=== PATIENT | female | born 1970 | race Two or more races ===

== ENCOUNTER 2017-09-05 20:20 | Emergency (ER) | payer BC ==
[2017-09-05 20:34] VITALS: BP 116/88
[2017-09-05] MEDS ORDERED: diphenhydrAMINE 50 MG/ML SDV IVPUSH ONE (20:53)
[2017-09-05] MEDS ORDERED: Ketorolac 30 MG/ML SDV IVPUSH ONE (20:53)
[2017-09-05] MEDS ORDERED: Haloperidol Lactate 5 MG/ML SDV IVPUSH ONE (20:53)
[2017-09-05] MEDS ORDERED: Sodium Chloride 0.9% 1,000 ML IV SCH (21:00)
--- NOTE | 2017-09-05 21:00 | EDM.PDOC ---
ED HPI GENERAL MEDICAL PROBLEM - General Chief Complaint: Headache Stated Complaint: HEADACHE Time Seen by Provider: 09/05/17 20:32 Source of Information: Reports: Patient, Family History Limitations: Reports: No Limitations - History of Present Illness INITIAL COMMENTS - FREE TEXT/NARRATIVE: This is a 47-year-old female. She comes today because about 1 AM this morning she awoke with a severe headache. The story goes that yesterday she got pinned in by the snow plow's and so she went out to do down her driveway. She apparently shoveled quite a bit until her got home and, took over. Then she woke up this morning with this severe headache. She describes it as a tightness pounding type headache seems to come from her shoulders and neck and going to her head and sometimes to the front of her head. She has had no nausea and vomiting. She denies any vertigo. She's had no photophobia or phonophobia. She states that moving her head especially flexion or extension or rotation causes her headache to get worse. She denies any other acute symptoms. 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 (See Below) Other OB/BYN History: chronic pain, dryness and swelling around the nipples Neurological History: Reports: Migraines - Infectious Disease History Infectious Disease History: Reports: Chicken Pox - Past Surgical History GI Surgical History: Reports: Appendectomy Female Surgical History: Reports: Hysterectomy Other Female Surgeries/Procedures: partial hysterectomy Social & Family History - Family History Family Medical History: Noncontributory - Tobacco Use Smoking Status *Q: Former Smoker Years of Tobacco use: 20 Packs/Tins Daily: 1 Used Tobacco, but Quit: Yes Month Tobacco Last Used: 1 month Second Hand Smoke Exposure: No - Caffeine Use Caffeine Use: Reports: Coffee, Soda - Recreational Drug Use Recreational Drug Use: No ED ROS GENERAL - Review of Systems Review Of Systems: See Below Constitutional: Denies: Fever, Chills HEENT: Denies: Sinus Problem, Throat Pain Respiratory: Reports: No Symptoms Cardiovascular: Reports: No Symptoms Endocrine: Reports: No Symptoms GI/Abdominal: Reports: No Symptoms : Reports: No Symptoms Musculoskeletal: Reports: Other (Patient has neck soreness and pain) Skin: Reports: No Symptoms Neurological: Reports: Headache Psychiatric: Reports: No Symptoms Hematologic/Lymphatic: Reports: No Symptoms - Physical Exam Exam: See Below Exam Limited By: No Limitations General Appearance: Alert, WD/WN, Mild Distress Eye Exam: Bilateral Eye: Normal Inspection Ears: Normal External Exam, Normal Canal, Normal TMs Nose: Normal Inspection Throat/Mouth: Normal Inspection, Normal Lips, Normal Oropharynx, Normal Voice, No Airway Compromise Head Exam: Normocephalic Neck: Other (The trapezius muscles are extremely tender and tight and the paraspinal cervical muscles appear to be very tight and having mild spasms, movement of her neck or flexion of her neck increases her headache, palpation around the scalp also seems to increase the throbbing type headache, she does not have nuchal rigidity however.) Respiratory/Chest: No Respiratory Distress, Lungs Clear, Normal Breath Sounds Cardiovascular: Regular Rate, Rhythm, No Murmur GI/Abdominal: Soft Neuro Exam (Abbreviated): Alert, Oriented Back Exam: Full Range of Motion Extremities: Normal Inspection, Normal Range of Motion Psychiatric: Normal Affect, Normal Mood Skin Exam: Warm, Dry Course - Vital Signs Last Recorded V/S: Last Vital Signs Temp 98.4 F 09/05/17 20:32 Pulse 94 09/05/17 20:32 Resp 20 09/05/17 20:32 BP 116/88 09/05/17 20:32 Pulse Ox 100 09/05/17 20:32 - Orders/Labs/Meds Orders: Active Orders 24 hr Category Date Time Status Sodium Chloride 0.9% [Normal Saline] 1,000 ml Med 09/05/17 21:00 Active IV ASDIRECTED Medication Orders Sodium Chloride (Normal Saline) 1,000 mls @ 1,000 mls/hr IV ASDIRECTED YONIS Last Admin: 09/05/17 21:15 Dose: 1,000 mls/hr Meds: Medications Generic Name Dose Route Start Last Admin Trade Name Althea PRN Reason Stop Dose Admin Sodium Chloride 1,000 mls @ 1,000 mls/hr 09/05/17 21:00 09/05/17 21:15 Normal Saline IV 1,000 mls/hr ASDIRECTED YONIS Administration Discontinued Medications Generic Name Dose Route Start Last Admin Trade Name Althea PRN Reason Stop Dose Admin Diphenhydramine HCl 50 mg 09/05/17 20:53 09/05/17 21:13 Benadryl IVPUSH 09/05/17 20:54 50 mg ONETIME ONE Administration Haloperidol Lactate 5 mg 09/05/17 20:53 09/05/17 21:11 Haldol IVPUSH 09/05/17 20:54 5 mg ONETIME ONE Administration Ketorolac Tromethamine 30 mg 09/05/17 20:53 09/05/17 21:14 Toradol IVPUSH 09/05/17 20:54 30 mg ONETIME ONE Administration - Re-Assessments/Exams Free Text/Narrative Re-Assessment/Exam: 09/05/17 22:18 The patient is sleeping soundly. She says her headache is resolved and she feels real good. I cautioned her that the headaches related to her shoveling snow and the muscle spasms in her trapezius and her neck. I'll provide a muscle relaxer for her and cautioned her to continue with icing and no strenuous activity over the next 2-3 days. She needs to follow-up with her family doctor for recheck this week. Departure - Departure Time of Disposition: 22:19 Disposition: Home, Self-Care 01 Condition: Good Clinical Impression: Tension-type headache, Muscle spasms of neck Cervical strain, acute Qualifiers: Encounter type: initial encounter Qualified Code(s): S16.1XXA - Strain of muscle, fascia and tendon at neck level, initial encounter - Discharge Information Prescriptions: Orphenadrine [Norflex] 100 mg PO BID PRN #12 tab.er PRN Reason: Spasms Referrals: PCP,None [Primary Care Provider] - Forms: ED Department Discharge Additional Instructions: Sleep as much as possible, take the medicine for spasms as needed, ice the neck down as much as possible and see if you can get a massage of your neck and upper back for the spasms, follow-up with your family doctor this week for recheck, no strenuous activity especially lifting and actually no shoveling snow , return to the ER if needed - My Orders Last 24 Hours: My Active Orders 09/05/17 21:00 Sodium Chloride 0.9% [Normal Saline] 1,000 ml IV ASDIRECTED - Assessment/Plan Last 24 Hours: My Active Orders 09/05/17 21:00 Sodium Chloride 0.9% [Normal Saline] 1,000 ml IV ASDIRECTED
== END 2017-09-05 22:28 | disposition home or self-care (01) ==
LOC: JD.ED 20:20
DX: S16.1XXA Strain of muscle, fascia and tendon at neck level, initial encounter (principal); G44.209 Tension-type headache, unspecified, not intractable; M62.838 Other muscle spasm; Z87.891 Personal history of nicotine dependence; Z79.899 Other long term (current) drug therapy; Z88.5 Allergy status to narcotic agent; Z88.6 Allergy status to analgesic agent; X58.XXXA Exposure to other specified factors, initial encounter; Y93.H1 Activity, digging, shoveling and raking
CPT/HCPCS: 96361; 96374; 96375; 99284; J1200; J1630; J1885; J7040

== ENCOUNTER 2018-09-12 20:08 | Emergency (ER) | payer SELFPAY ==
[2018-09-12 20:25] VITALS: BP 113/80
--- NOTE | 2018-09-12 20:51 | EDM.PDOC ---
ED HPI GENERAL MEDICAL PROBLEM - General Chief Complaint: Lower Extremity Injury/Pain Stated Complaint: LEFT KNEE PAINFUL & SWOLLEN Time Seen by Provider: 09/12/18 20:22 Source of Information: Reports: Patient, Family History Limitations: Reports: No Limitations - History of Present Illness INITIAL COMMENTS - FREE TEXT/NARRATIVE: 48 yo F comes in today for left leg pain after a fall 11 days ago on 08/31/18. She was getting into her car and slipped on ice with her foot caught in the door , which twisted her leg. She was then seen at [facility] where she had an Xray and they told her she had a "fracture and a chip". She was given a prescription of Hydrocodone for pain and told to cone picker a leg brace from [employer]. Pt and state they were never told to follow up with orthopedic. She does not have crutches and has been weight bearing on the leg with some pain. She still has swelling and pain to the tibial plateau area. Rates pain 2/10 at rest and slightly worse with walking. No other complaints at this time. Left Leg Pain Score (Numeric/FACES): 2 - Related Data Allergies Allergy/AdvReac Type Severity Reaction Status Date / Time oxycodone [From Percocet] Allergy Other Verified 09/12/18 20:25 tramadol AdvReac Mild Vomiting Verified 09/08/17 12:04 acetaminophen [From Percocet] AdvReac Stomach Verified 09/08/17 12:04 Ache Home Meds: Home Meds Ibuprofen [IJD: Ibuprofen] 800 mg PO TID PRN #30 tab 04/24/16 [Rx] Orphenadrine [Norflex] 100 mg PO BID PRN #12 tab.er 09/05/17 [Rx] Venlafaxine [Effexor] 75 mg PO DAILY 09/05/17 [History] Past Medical History HEENT History: Reports: Other (See Below) Other HEENT History: dental surgery 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: chronic pain, dryness and swelling around the nipples Neurological History: Reports: Migraines - Infectious Disease History Infectious Disease History: Reports: Chicken Pox - Past Surgical History GI Surgical History: Reports: Appendectomy Female Surgical History: Reports: Hysterectomy Other Female Surgeries/Procedures: partial hysterectomy Social & Family History - Family History Family Medical History: Noncontributory - Tobacco Use Smoking Status *Q: Current Every Day Smoker Years of Tobacco use: 25 Packs/Tins Daily: 0.2 - Caffeine Use Caffeine Use: Reports: Coffee - Recreational Drug Use Recreational Drug Use: No Review of Systems - Review of Systems Review Of Systems: ROS reveals no pertinent complaints other than HPI. ED EXAM, GENERAL - Physical Exam Exam: See Below Exam Limited By: No Limitations General Appearance: Alert, WD/WN, No Apparent Distress Eye Exam: Bilateral Eye: EOMI, Normal Inspection, PERRL Ears: Normal External Exam, Hearing Grossly Normal Nose: Normal Inspection, Normal Mucosa, No Blood Throat/Mouth: Normal Inspection, Normal Lips, Normal Teeth, Normal Gums, Normal Oropharynx, Normal Voice, No Airway Compromise Head: Atraumatic, Normocephalic Neck: Normal Inspection, Supple, Non-Tender, Full Range of Motion Respiratory/Chest: No Respiratory Distress, Lungs Clear, Normal Breath Sounds, No Accessory Muscle Use, Chest Non-Tender Cardiovascular: Normal Peripheral Pulses, Regular Rate, Rhythm, No Edema, No Gallop, No JVD, No Murmur, No Rub Peripheral Pulses: 3+: Posterior Tibial (L), Dorsalis Pedis (L), 4+: Posterior Tibial (R), Dorsalis Pedis (R) GI/Abdominal: Normal Bowel Sounds, Soft, Non-Tender, No Organomegaly, No Distention, No Abnormal Bruit, No Mass Back Exam: Normal Inspection, Full Range of Motion, NT Extremities: No Pedal Edema, Normal Capillary Refill, Joint Swelling (L knee), Leg Pain (s/p injury from fall LLE), Limited Range of Motion (s/p injury from fall LLE) Neurological: Alert, Oriented, CN II-XII Intact, Normal Cognition, Abnormal Gait Psychiatric: Normal Affect, Normal Mood Skin Exam: Warm (s/p injury from fall LLE), Dry, Intact, Normal Color, No Rash Course - Vital Signs Last Recorded V/S: Last Vital Signs Temp 97.1 F 09/12/18 20:21 Pulse 91 09/12/18 20:21 Resp 18 09/12/18 20:21 BP 113/80 09/12/18 20:21 Pulse Ox 97 09/12/18 20:21 - Orders/Labs/Meds Orders: Active Orders 24 hr Category Date Time Status Tibia Fibula Lt [CR] Stat Exams 09/12/18 20:41 Ordered - Re-Assessments/Exams Free Text/Narrative Re-Assessment/Exam: 09/12/18 20:56 L Tib/Fib reviewed by myself and Dr. Tamez- there seems to be no fractures present at this time. Likely soft tissue/meniscal injury that will need orthopedic follow up with MRI. Departure - Departure Time of Disposition: 20:59 Disposition: Home, Self-Care 01 Condition: Good Clinical Impression: Derangement of knee - Discharge Information *PRESCRIPTION DRUG MONITORING PROGRAM REVIEWED*: Not Applicable *COPY OF PRESCRIPTION DRUG MONITORING REPORT IN PATIENT TORI: Not Applicable Instructions: How to Use a Knee Immobilizer, [id number], Crutch Use, Adult, [id number] Referrals: PCP,None [Primary Care Provider] - Additional Instructions: You were seen in the ED today for evaluation of a previous injury to your L leg that has continued to have pain and swelling. A repeat Xray was done and there were no fractures seen. With your history of a twisting injury and continued swelling, it is likely you have a soft tissue injury within your knee. You will be given a new brace and some crutches today. Recommend non-weight bearing on the L leg, rest, ice, elevation. You can use over the counter medication for pain relief, such as ibuprofen, or continue the previous prescription you were given. Recommend follow up with orthopedic surgeon, Dr. Liang. You can make an appointment with Dr. Liang . You will likely need an MRI at that time. Please return to ED if new or worsening symptoms. - My Orders Last 24 Hours: My Active Orders 09/12/18 20:41 Tibia Fibula Lt [CR] Stat - Assessment/Plan Last 24 Hours: My Active Orders 09/12/18 20:41 Tibia Fibula Lt [CR] Stat
--- NOTE | 2018-09-13 07:08 | CR ---
Left tibia and fibula: Two views of the left tibia and fibula were obtained. Comparison: No prior study. Slight concavity of the medial tibial plateau is seen. Uncertain if this is positional or due to mild impaction fracture. No additional bony abnormality is seen. Impression: 1. Equivocal finding within the medial tibial plateau as noted above. 2. Left tibia and fibula study are otherwise unremarkable. Diagnostic code #3
== END 2018-09-12 21:45 | disposition home or self-care (01) ==
LOC: JD.ED 20:08
DX: M23.92 Unspecified internal derangement of left knee (principal); F17.210 Nicotine dependence, cigarettes, uncomplicated; Z88.5 Allergy status to narcotic agent; Z88.8 Allergy status to other drugs, medicaments and biological substances; Z79.899 Other long term (current) drug therapy
CPT/HCPCS: 73590-26-LT; 73590-LT; 99282; 99283-25

== ENCOUNTER 2020-02-24 20:37 | Emergency (ER) | payer SELFPAY ==
[2020-02-24 21:00] VITALS: BP 137/90; PULSE 92
--- NOTE | 2020-02-24 21:39 | EDM.PDOC ---
ED HPI GENERAL MEDICAL PROBLEM - General Chief Complaint: Lower Extremity Injury/Pain Stated Complaint: ANKLE INJURY Time Seen by Provider: 02/24/20 21:38 Source of Information: Reports: Patient History Limitations: Reports: No Limitations - History of Present Illness INITIAL COMMENTS - FREE TEXT/NARRATIVE: 49-year-old female attends the ED for a evaluation of injury to her distal fibula that occurred yesterday when she accidentally kicked a motor which was on the ground in the garage that her was working on. She indicates that she clipped it significantly with the lateral aspect of her ankle over the distal fibula and the pain just about made her pass out. Unfortunately 20 minutes later when she was opening a gate a rock came up and hit her in exactly the same place. She presents on crutches with painful weightbearing with swelling distal fibula and dorsal lateral foot. Denies falling or injuring any other areas. She has the crutches from a previous injury to her left knee which improved on its own. Is been taking Motrin for pain without much relief. Onset: Sudden Onset Date: 02/23/20 Onset Time: 21:00 Duration: Hour(s):, Getting Worse Location: Reports: Upper Extremity, Right (Injuries to the distal fibula of her right ankle.) Quality: Reports: Ache, Burning, Throbbing, Other (Pain radiates up to the knee and along the lateral aspect of her foot suggesting some degree of neurogenic component to her pain.) Severity: Moderate (The pain is 7-8 out of 10.) Improves with: Reports: Rest Worsens with: Reports: Other (Weightbearing and touching the area makes it) Context: Reports: Trauma (Trauma when she accidentally kicked a motor on the garage floor of her home.). Denies: Activity ( more painful.), Exercise, Lifting, Sick Contact Associated Symptoms: Reports: No Other Symptoms Treatments ENGINE CLEANER: Reports: Acetaminophen, NSAIDS (Motrin 400 mg every 6 hours.) Right Ankle Pain Score (Numeric/FACES): 3 - Related Data Allergies Allergy/AdvReac Type Severity Reaction Status Date / Time oxycodone [From Percocet] Allergy Other Verified 09/12/18 20:25 tramadol AdvReac Mild Vomiting Verified 09/08/17 12:04 acetaminophen [From Percocet] AdvReac Stomach Verified 09/08/17 12:04 Ache Home Meds: Home Meds Ibuprofen [IJD: Ibuprofen] 800 mg PO TID PRN #30 tab 04/24/16 [Rx] Orphenadrine [Norflex] 100 mg PO BID PRN #12 tab.er 09/05/17 [Rx] Venlafaxine [Effexor] 75 mg PO DAILY 09/05/17 [History] Hydrocodone/Acetaminophen [[place] 5-325 Tablet] 1 each PO Q4H PRN #16 tablet 02/24/20 [Rx] Past Medical History HEENT History: Reports: Other (See Below) Other HEENT History: dental surgery 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: chronic pain, dryness and swelling around the nipples Musculoskeletal History: Reports: Other (See Below) (Previous ligamentous injury to her left knee.) Neurological History: Reports: Migraines - Infectious Disease History Infectious Disease History: Reports: Chicken Pox - Past Surgical History GI Surgical History: Reports: Appendectomy Female Surgical History: Reports: Hysterectomy Other Female Surgeries/Procedures: partial hysterectomy Social & Family History - Family History Family Medical History: Noncontributory - Tobacco Use Smoking Status *Q: Former Smoker Used Tobacco, but Quit: Yes Month/Year Tobacco Last Used: 2019 - Caffeine Use Caffeine Use: Reports: Coffee - Living Situation & Occupation Living situation: Reports: Occupation: Unemployed Review of Systems - Review of Systems Review Of Systems: See Below Constitutional: Reports: No Symptoms Eyes: Reports: No Symptoms Ears: Reports: No Symptoms Nose: Reports: No Symptoms Mouth/Throat: Reports: No Symptoms Respiratory: Reports: No Symptoms Cardiovascular: Reports: No Symptoms GI/Abdominal: Reports: No Symptoms Genitourinary: Reports: No Symptoms Musculoskeletal: Reports: Back Pain, Other (Right lateral ankle pain at pres ent.) Skin: Reports: No Symptoms Neurological: Reports: No Symptoms Psychiatric: Reports: No Symptoms ED EXAM, GENERAL - Physical Exam Exam: See Below Exam Limited By: No Limitations General Appearance: Alert, WD/WN, Anxious, Mild Distress, Other (Temperature is 36.6. Heart rate is 92 in sinus respiratory 16 with O2 sats of 97% on room air. BP is 137/90.) Eye Exam: Bilateral Eye: Normal Inspection, PERRL Extremities: Other (Examination was limited to her right lower extremity. She does have ecchymoses and swelling over the distal 3 cm of her fibula. There is also significant bruising and swelling anterior to the distal fibula and ecchymoses in the dorsal lateral foot suggestive of an ankle sprain contusion. There is no abnormality or pain on the medial aspect of the ankle. Pain will shoot up towards her right lateral knee in the distribution of the needle nerve at times.) Neurological: Alert, Oriented, CN II-XII Intact, Normal Cognition. No: Normal Gait Psychiatric: Normal Affect (He arrives on crutches.), Normal Mood Skin Exam: Warm, Dry, Intact, Ecchymosis (Anterior to the right distal fibula and lateral foot.) Course - Vital Signs Last Recorded V/S: Last Vital Signs Temp 36.6 C 02/24/20 20:57 Pulse 92 02/24/20 20:57 Resp 16 02/24/20 20:57 BP 137/90 02/24/20 20:57 Pulse Ox 97 02/24/20 20:57 - Orders/Labs/Meds Orders: Active Orders 24 hr Category Date Time Status Ankle Min 3V Rt [CR] Stat Exams 02/24/20 21:38 Taken Meds: Medications Discontinued Medications Generic Name Dose Route Start Last Admin Trade Name Freq PRN Reason Stop Dose Admin Hydrocodone Bitart/Acetaminophen 1 tab 02/24/20 22:12 02/24/20 22:23 [place] 325-5 Mg PO 02/24/20 22:13 1 tab ONETIME ONE Administration - Radiology Interpretation Free Text/Narrative:: 49-year-old female presents to the ED for evaluation of injury to her distal fib elieser and ankle yesterday evening. She reports that she accidentally kicked a motor that is on the garage floor that her is working on injuring the distal fibula and lateral ankle and foot. She states initially the pain was about she does well past. When she recovered from this unfortunately she is opening a gate and was struck in the lateral aspect of the foot by a rock while closing the gait in the same area. She states the pain is bad enough that she cannot fully weight-bear and is therefore on crutches. She has the crutches due to previous injury to her left knee with ligamentous injury from which she recovered from. Exam reveals swelling erythema and ecchymoses dorsal lateral foot particular over the distal 3 cm of the fibula. Medial ankle is normal. Plan x-ray of the right ankle x3 view to be obtained - Re-Assessments/Exams Free Text/Narrative Re-Assessment/Exam: 02/24/20 22:30: 3 views of the right ankle were obtained. There is no fracture of the distal fibula and talus and distal tibia are normal as well. Patient was therefore placed in an Crow wrap to support her ankle and foot. She will ice the area 1/2-hour out of every 4 hours for another 24 hours. Elevate the foot as much as possible. She will be nonweightbearing crutch walking for the next 3 to 5 days until she can weight-bear without pain. She will continue Motrin 600 mg every 6 hours to reduce pain and inflammation. Percocet tabs 5/325 mg through the [employer] machine x12 were provided for pain relief which appears to be out of proportion to clinical findings although she may well have suffered a significant bone bruise the pain rating into her right knee suggests neuropathic pain or referred pain from blunt trauma to the periosteum. We will follow-up with her primary care physician next week if needed. She has an appointment already scheduled for Friday. Departure - Departure Time of Disposition: 22:13 Disposition: Home, Self-Care 01 Condition: Fair Clinical Impression: Bone bruise Contusion, ankle Qualifiers: Encounter type: initial encounter Laterality: right Qualified Code(s): S90.01XA - Contusion of right ankle, initial encounter - Discharge Information *PRESCRIPTION DRUG MONITORING PROGRAM REVIEWED*: Not Applicable *COPY OF PRESCRIPTION DRUG MONITORING REPORT IN PATIENT TORI: Not Applicable Prescriptions: Hydrocodone/Acetaminophen [[place] 5-325 Tablet] 1 each PO Q4H PRN #16 tablet PRN Reason: pain relief Instructions: Contusion, [id number] Referrals: PCP,None [Primary Care Provider] - Forms: ED Department Discharge Additional Instructions: Evaluation in the ED tonight in regards to blunt trauma to the Rt lateral ankle yesterday x 2. Exam reveals swelling and brusiing lateral ankle with pain well localized to the lower fibula ( ankle bone) .X-rays of the ankle and foot do not reveal any broken bones. You have suffered a bone bruise which is referring pain up the leg to the knee at times. Treatment is CROW wrap on during the day and off at night . Ice pack to the area for 1/2 hrs every 4hrs for one more day then may use heat on the area. Suggest Motrin 600mg every6 hrs for pain . May also take [place] 5/325mg tab let every 4-6 hrs for the next few days for pain not controlled by Motrin alone. Non weight bearing crutch walking until able to weight bare with little to no pain in the lateral ankle. like this will be 5 days or so. Follow up with personal physcian if any other problems develop. Sepsis Event Note (ED) - Evaluation Sepsis Screening Result: No Definite Risk - Focused Exam Vital Signs: Vital Signs Temp Pulse Resp BP Pulse Ox 02/24/20 20:57 36.6 C 92 16 137/90 97 - My Orders Last 24 Hours: My Active Orders 02/24/20 21:38 Ankle Min 3V Rt [CR] Stat - Assessment/Plan Last 24 Hours: My Active Orders 02/24/20 21:38 Ankle Min 3V Rt [CR] Stat
[2020-02-24] MEDS ORDERED: Acetaminophen/HYDROcodone 325-5 MG Tab PO ONE (22:12)
--- NOTE | 2020-02-25 06:55 | CR ---
Right ankle: 4 views of the right ankle were obtained. Comparison: No previous ankle study. Ankle mortise is symmetric. No fracture, dislocation or other bony abnormality is seen. Impression: 1. No abnormality is appreciated on three-view right ankle exam. Diagnostic code #1 This report was dictated in MDT
== END 2020-02-24 22:37 | disposition home or self-care (01) ==
LOC: JD.ED 20:37
DX: S90.01XA Contusion of right ankle, initial encounter (principal); S80.11XA Contusion of right lower leg, initial encounter; Z88.5 Allergy status to narcotic agent; Z88.6 Allergy status to analgesic agent; Z90.89 Acquired absence of other organs; Z90.710 Acquired absence of both cervix and uterus; Z87.891 Personal history of nicotine dependence; W22.8XXA Striking against or struck by other objects, initial encounter
CPT/HCPCS: 73610; 99283; A9270

== ENCOUNTER 2020-05-16 23:35 | Emergency (ER) | payer MEDICAID ==
[2020-05-17] VITALS: BP 140/82; PULSE 94
--- NOTE | 2020-05-17 00:14 | EDM.PDOC ---
ED HPI GENERAL MEDICAL PROBLEM - General Chief Complaint: Flank Pain Stated Complaint: RIGHT SIDE FLANK PAIN Time Seen by Provider: 05/17/20 00:14 - History of Present Illness INITIAL COMMENTS - FREE TEXT/NARRATIVE: 49-year-old female presents the emergency room with flank pain. This was on and off mostly yesterday and today it has been progressively getting worse. The patient has a history of kidney stones she states calcium oxalate. The patient has not had any recent follow-up with a primary care provider or urologist. She has been seen here several times in the past but not for kidney stone since 2013. Patient denies any vomiting minimal nausea no fevers or chills. She has no burning or frequency with urination. Is have some back pain no loss of bowel or bladder control she believes the back pain is related to a suspected kidney stone. She denies any possibility of she has had a partial hysterectomy in the past. Patient denies any other problems. The patient's med list is not up-to-date she takes one medication escitaiopram, generic for Lexapro. Think she is taking this for hot flashes. Right Flank Pain Score (Numeric/FACES): 3 - Related Data Allergies Allergy/AdvReac Type Severity Reaction Status Date / Time oxycodone [From Percocet] Allergy Other Verified 05/16/20 23:57 tramadol AdvReac Mild Vomiting Verified 05/16/20 23:57 acetaminophen [From Percocet] AdvReac Stomach Verified 05/16/20 23:57 Ache Home Meds: Home Meds Ibuprofen [IJD: Ibuprofen] 800 mg PO TID PRN #30 tab 04/24/16 [Rx] Orphenadrine [Norflex] 100 mg PO BID PRN #12 tab.er 09/05/17 [Rx] Venlafaxine [Effexor] 75 mg PO DAILY 09/05/17 [History] Hydrocodone/Acetaminophen [Avon 5-325 Tablet] 1 each PO Q4H PRN #16 tablet 02/24/20 [Rx] Past Medical History HEENT History: Reports: Other (See Below) Other HEENT History: dental surgery 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: chronic pain, dryness and swelling around the nipples Musculoskeletal History: Reports: Other (See Below) Other Musculoskeletal History: tendon repair to R) leg Neurological History: Reports: Migraines - Infectious Disease History Infectious Disease History: Reports: Chicken Pox - Past Surgical History GI Surgical History: Reports: Appendectomy Female Surgical History: Reports: Hysterectomy Other Female Surgeries/Procedures: partial hysterectomy Social & Family History - Family History Family Medical History: No Pertinent Family History - Tobacco Use Tobacco Use Status *Q: Current Every Day Tobacco User Years of Tobacco use: 20 Packs/Tins Daily: 0.1 - Caffeine Use Caffeine Use: Reports: Coffee - Recreational Drug Use Recreational Drug Use: No - Living Situation & Occupation Living situation: Reports: Occupation: Unemployed ED ROS GENERAL - Review of Systems Review Of Systems: See Below Constitutional: Reports: No Symptoms HEENT: Reports: No Symptoms Respiratory: Reports: No Symptoms Cardiovascular: Reports: No Symptoms GI/Abdominal: Reports: No Symptoms : Reports: Flank Pain. Denies: Discharge, Dysuria, Frequency, Urgency Musculoskeletal: Reports: No Symptoms Skin: Reports: No Symptoms ED EXAM, GI/ABD - Physical Exam Exam: See Below Exam Limited By: No Limitations General Appearance: Alert, No Apparent Distress Head: Atraumatic, Normocephalic Neck: Normal Inspection, Supple, Non-Tender, Full Range of Motion Respiratory/Chest: No Respiratory Distress, Lungs Clear, Normal Breath Sounds Cardiovascular: Regular Rate, Rhythm, No Edema, No Murmur GI/Abdominal Exam: Normal Bowel Sounds, Soft, Other (Has some right-sided discomfort however this is not aggravated with palpation. No rigidity rebound or guarding noted) Back Exam: Normal Inspection, Muscle Spasm (He does have some muscle spasm on the right mid to lower thoracic region. And this does cause some pain but the patient is still somewhat convinced she has a kidney stone). No: CVA Tenderness (L), CVA Tenderness (R), Vertebral Tenderness Extremities: Normal Inspection, No Pedal Edema Neurological: Alert, Oriented, Normal Cognition Course - Vital Signs Last Recorded V/S: Last Vital Signs Temp 36.8 C 05/16/20 23:57 Pulse 94 05/16/20 23:57 Resp 17 05/16/20 23:57 BP 140/82 05/16/20 23:57 Pulse Ox 94 L 05/16/20 23:57 - Orders/Labs/Meds Orders: Active Orders 24 hr Category Date Time Status Abdomen Pelvis wo Cont [CT] Stat Exams 05/17/20 00:38 Taken Abdomen wo Cont [CT] Stat Exams 05/17/20 00:21 Ordered Labs: Laboratory Tests 05/17/20 05/17/20 05/17/20 Range/Units 00:40 01:08 01:08 WBC 10.98 H (3.98-10.04) K/mm3 RBC 3.96 L (3.98-5.22) M/mm3 Hgb 12.2 D (11.2-15.7) gm/dl Hct 37.5 (34.1-44.9) % MCV 94.7 (79.4-94.8) fl MCH 30.8 (25.6-32.2) pg MCHC 32.5 (32.2-35.5) g/dl RDW Std Deviation 47.8 H (36.4-46.3) fL Plt Count 358 (182-369) K/mm3 MPV 9.2 L (9.4-12.3) fl Neut % (Auto) 53.1 (34.0-71.1) % Lymph % (Auto) 38.0 (19.3-51.7) % [place] % (Auto) 6.3 (4.7-12.5) % Eos % (Auto) 1.9 (0.7-5.8) Baso % (Auto) 0.4 (0.1-1.2) % Neut # (Auto) 5.84 (1.56-6.13) K/mm3 Lymph # (Auto) 4.17 H (1.18-3.74) K/mm3 [place] # (Auto) 0.69 H (0.24-0.36) K/mm3 Eos # (Auto) 0.21 (0.04-0.36) K/mm3 Baso # (Auto) 0.04 (0.01-0.08) K/mm3 Manual Slide Review Abnormal smear Sodium 137 (136-145) mEq/L Potassium 3.9 (3.5-5.1) mEq/L Chloride 103 (98-107) mEq/L Carbon Dioxide 25 (21-32) mEq/L Anion Gap 12.9 (5-15) BUN 18 (7-18) mg/dL Creatinine 0.8 (0.55-1.02) mg/dL Est Cr Clr Drug Dosing 76.54 mL/min Estimated GFR (MDRD) > 60 (>60) mL/min BUN/Creatinine Ratio 22.5 H (14-18) Glucose 96 (74-106) mg/dL Calcium 9.8 (8.5-10.1) mg/dL Total Bilirubin 0.2 (0.2-1.0) mg/dL AST 20 (15-37) U/L ALT 47 (14-59) U/L Alkaline Phosphatase 80 (46-116) U/L Total Protein 7.5 (6.4-8.2) g/dl Albumin 3.6 (3.4-5.0) g/dl Globulin 3.9 gm/dL Albumin/Globulin Ratio 0.9 L (1-2) Urine Color Yellow (Yellow) Urine Appearance Clear (Clear) Urine pH 6.0 (5.0-8.0) Ur Specific [place] > or = 1.030 (1.005-1.030) Urine Protein Trace H (Negative) Urine Glucose (UA) Negative (Negative) Urine Ketones Trace H (Negative) Urine Occult Blood Negative (Negative) Urine Nitrite Negative (Negative) Urine Bilirubin Negative (Negative) Urine Urobilinogen 0.2 (0.2-1.0) Ur Leukocyte Esterase Negative (Negative) Urine RBC 0-5 (0-5) /hpf Urine WBC 0-5 (0-5) /hpf Ur Squamous Epith Cells 10-20 H (0-5) /hpf Urine Bacteria Moderate H (FEW) /hpf Urine Mucus Few (FEW) /hpf Meds: Medications Discontinued Medications Generic Name Dose Route Start Last Admin Trade Name Freq PRN Reason Stop Dose Admin Hydrocodone Bitart/Acetaminophen 1 tab 05/17/20 00:31 05/17/20 00:37 Avon 325-5 Mg PO 05/17/20 00:32 1 tab ONETIME ONE Administration Ondansetron HCl 4 mg 05/17/20 00:31 05/17/20 00:37 Zofran Odt PO 05/17/20 00:32 4 mg ONETIME ONE Administration - Re-Assessments/Exams Free Text/Narrative Re-Assessment/Exam: 05/17/20 01:59 Urinalysis is contaminated but leukocyte Estrace and nitrates negative not suggestive of UTI white count is minimally elevated remaining labs unremarkable. CT without contrast does not demonstrate a kidney stone evidence of hydronephrosis or any other suggestion of kidney stones whether obstructive or otherwise. I have reexamined her back and indeed this pain from the palpable muscle spasm does radiate down into the right lower abdomen. Departure - Departure Time of Disposition: 02:01 Disposition: Home, Self-Care 01 Clinical Impression: Acute right-sided back pain - Discharge Information Referrals: PCP,None [Primary Care Provider] - Forms: ED Department Discharge Additional Instructions: Return to the emergency room with any questions problems or worsening symptoms. Tylenol and/or Motrin as needed for discomfort. Take the Motrin only as directed and always take with food. Take the Tylenol only as directed do not exceed 4000 mg in a 24-hour period. Follow-up in the hospital clinic for recheck at the end of this week or first part of next week. [id number] Sepsis Event Note (ED) - Evaluation Sepsis Screening Result: No Definite Risk - Focused Exam Vital Signs: Vital Signs Temp Pulse Resp BP Pulse Ox 05/16/20 23:57 36.8 C 94 17 140/82 94 L - My Orders Last 24 Hours: My Active Orders 05/17/20 00:21 Abdomen wo Cont [CT] Stat 05/17/20 00:38 Abdomen Pelvis wo Cont [CT] Stat - Assessment/Plan Last 24 Hours: My Active Orders 05/17/20 00:21 Abdomen wo Cont [CT] Stat 05/17/20 00:38 Abdomen Pelvis wo Cont [CT] Stat
[2020-05-17] MEDS ORDERED: Acetaminophen/HYDROcodone 325-5 MG Tab PO ONE (00:31)
[2020-05-17] MEDS ORDERED: Ondansetron 4 MG Tab.DIS PO ONE (00:31)
--- NOTE | 2020-05-17 08:44 | CT ---
PROCEDURE INFORMATION: Exam: CT Abdomen And Pelvis Without Contrast Exam date and time: 05/17/2020 12:28 AM Age: 49 years old Clinical indication: Abdominal pain; Flank; Right TECHNIQUE: Imaging protocol: Computed tomography of the abdomen and pelvis without contrast. Radiation optimization: All CT scans at this facility use at least one of these dose optimization techniques: automated exposure control; mA and/or kV adjustment per patient size (includes targeted exams where dose is matched to clinical indication); or iterative reconstruction. COMPARISON: CT Abdomen Pelvis wo Cont 06/07/2015 2:49 PM FINDINGS: Liver: Normal. No mass. Gallbladder and bile ducts: Normal. No calcified stones. No ductal dilation. Pancreas: Normal. No ductal dilation. Spleen: Normal. No splenomegaly. Adrenal glands: Normal. No mass. Kidneys and ureters: Normal. No hydronephrosis. Stomach and bowel: Unremarkable. No obstruction. No mucosal thickening. Appendix: No evidence of appendicitis. Intraperitoneal space: Unremarkable. No free air. No significant fluid collection. Vasculature: Unremarkable. No abdominal aortic aneurysm. Lymph nodes: Unremarkable. No enlarged lymph nodes. Urinary bladder: Unremarkable as visualized. Reproductive: Unremarkable as visualized. Bones/joints: Unremarkable. No acute fracture. Soft tissues: Unremarkable. IMPRESSION: 1. No acute findings. 2. No evidence for renal or ureteral calculi. Thank you for allowing us to participate in the care of your patient. Dictated and Authenticated by: Jac Lizama MD 05/17/2020 2:10 AM Central Time ([place] & [place]) ALEXANDRO
== END 2020-05-17 02:15 | disposition home or self-care (01) ==
LOC: JD.ED 23:35
DX: M62.830 Muscle spasm of back (principal); F17.210 Nicotine dependence, cigarettes, uncomplicated; Z88.5 Allergy status to narcotic agent; Z88.6 Allergy status to analgesic agent; Z79.899 Other long term (current) drug therapy
CPT/HCPCS: 36415; 74176; 80053; 81001; 85025; 99284; A9270

== ENCOUNTER 2020-06-11 18:32 | Emergency (ER) | payer MEDICAID ==
[2020-06-11 18:50] VITALS: BP 119/84; PULSE 80
[2020-06-11] MEDS ORDERED: FLU VACC QS2020-21(6MOS UP)/PF 60 MCG/0.5 ML SYRINGE IM ONE (19:00)
[2020-06-11] MEDS ORDERED: Orphenadrine 100 MG Tab.ER PO STA (19:34)
--- NOTE | 2020-06-11 19:34 | EDM.PDOC ---
ED HPI GENERAL MEDICAL PROBLEM - General Chief Complaint: Gastrointestinal Problem Stated Complaint: BAD HEARTBURN,RIGHT SIDE PAIN BLOOD IN BOWEL MOV Time Seen by Provider: 06/11/20 19:03 Source of Information: Reports: Patient History Limitations: Reports: No Limitations - History of Present Illness INITIAL COMMENTS - FREE TEXT/NARRATIVE: Mrs. Santana is a pleasant 49-year-old woman who now presents the ED stating that she has had heartburn, felt as a burning sensation in her throat, along with increased eructation, for the past 2-1/2 weeks. She states that she has been sleeping with the head of her bed elevated, although she sleeps on her right side. She states that she then developed pain to her lower far right thorax, extending to her right back, this past 06/07/2020. The pain comes and goes. It is worse if she lies in the right decubitus position, although, as above, that is the position that she has been sleeping in. She then developed lower abdominal pain this past evening, 06/08/2020, or Friday morning, 06/09/2020. She thinks that it may be due to working on a small car that she and her purchased. She then noticed some bright red blood over normal- appearing stool when she wiped after a bowel movement Friday night, 06/09/2020. There was no pain associated with it. She states that she has had some nausea, but no vomiting. She states that she has had bad breath for the past 2 days, that she thinks may be related to a bad lower right tooth. The patient states that she has been taking a lot of [id number] TUMS and Pepto-Bismol to treat her heartburn symptoms. No recent fever or chills. No recent constipation or diarrhea. No recent urinary symptoms, such as dysuria or urinary frequency. Here in the ED, the patient is found to be hemodynamically stable, afebrile, saturating 99% on room air. Prior to 2 and half weeks ago, the patient denies having a recent fever, chills, sore throat, ear pain, nasal or sinus congestion, cough, dyspnea, chest pain, palpitations, nausea, vomiting, constipation, diarrhea, abdominal pain, urinary symptoms, recent weight gain or weight loss, recent bloody bowel movements or black bowel movements, recent joint aches, headaches, or rashes. The patient's PCP is Maritza Butterfield NP. She has not received an influenza vaccine this season, but agreed to receive one here tonight. 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: Endometriosis (laparoscopy-confirmed) - Infectious Disease History Infectious Disease History: Reports: Chicken Pox - Past Surgical History HEENT Surgical History: Reports: Oral Surgery (dental extractions) GI Surgical History: Reports: Appendectomy Female Surgical History: Reports: Hysterectomy (partial), Tubal Ligation, Other (See Below) (Exploratory laparoscopy for endometriosis x 1) Musculoskeletal Surgical History: Reports: Other (See Below) (Right Achilles tendon repair) Social & Family History - Family History Family Medical History: No Pertinent Family History - Tobacco Use Tobacco Use Status *Q: Current Every Day Tobacco User Years of Tobacco use: 23 Packs/Tins Daily: 0.1 Packs/Tins Daily Comment: Down from 1.5 ppd - Caffeine Use Caffeine Use: Reports: None - Alcohol Use Alcohol Use History: Yes Alcohol Use Frequency: Rarely - Recreational Drug Use Recreational Drug Use: No - Living Situation & Occupation Living situation: Reports: , with Spouse Occupation: Unemployed ED ROS GENERAL - Review of Systems Review Of Systems: Comprehensive ROS is negative, except as noted in HPI. ED EXAM, GENERAL - Physical Exam Exam: See Below Exam Limited By: No Limitations General Appearance: Alert, WD/WN, No Apparent Distress Eye Exam: Bilateral Eye: EOMI, Normal Inspection Ears: Normal External Exam, Hearing Grossly Normal Nose: Normal Inspection Throat/Mouth: Normal Inspection, Normal Lips, Normal Voice, No Airway Compromise Head: Atraumatic, Normocephalic Neck: Normal Inspection, Full Range of Motion Respiratory/Chest: No Respiratory Distress, Lungs Clear, Normal Breath Sounds, No Accessory Muscle Use Cardiovascular: Normal Peripheral Pulses, Regular Rate, Rhythm, No Edema, No Gallop, No JVD, No Murmur, No Rub Peripheral Pulses: 3+: Radial (L), Radial (R) GI/Abdominal: Normal Bowel Sounds, Soft, Non-Tender, No Organomegaly, No Distention, No Abnormal Bruit, No Mass Rectal (Female) Exam: Normal Exam, Normal Rectal Tone, Heme - Stool Back Exam: Normal Inspection, Full Range of Motion, Paraspinal Tenderness (extending to the lower far right ribs). No: CVA Tenderness (L), CVA Tenderness (R) Extremities: Normal Inspection, Normal Range of Motion, No Pedal Edema, Normal Capillary Refill Neurological: Alert, Oriented, Normal Cognition, No Motor/Sensory Deficits Psychiatric: Normal Affect Skin Exam: Warm, Dry, Intact, Normal Color, No Rash #1 Interpretation EKG Date: 06/11/20 Time: 19:38 Rhythm: NSR Rate (Beats/Min): 67 Harvey: Normal P-Wave: Present QRS: Normal ST-T: Normal QT: Normal Comparison: NA - No Prior EKG Course - Vital Signs Last Recorded V/S: Last Vital Signs Temp 36.6 C 06/11/20 18:47 Pulse 80 06/11/20 18:47 Resp 18 06/11/20 18:47 BP 119/84 06/11/20 18:47 Pulse Ox 99 06/11/20 18:47 - Orders/Labs/Meds Orders: Active Orders 24 hr Category Date Time Status EKG Documentation Completion [RC] STAT Care 06/11/20 19:27 Active Influenza Vaccine Charge [RC] .DISCHARGE Care 06/11/20 18:52 Active Chest 2V [CR] Stat Exams 06/11/20 19:27 Taken CBC WITH MANUAL DIFF [HEME] Stat Lab 06/11/20 19:53 Results Labs: Laboratory Tests 06/11/20 06/11/20 Range/Units 19:53 19:53 WBC 9.94 (3.98-10.04) K/mm3 RBC 4.01 (3.98-5.22) M/mm3 Hgb 12.5 (11.2-15.7) gm/dl Hct 38.6 (34.1-44.9) % MCV 96.3 H (79.4-94.8) fl MCH 31.2 (25.6-32.2) pg MCHC 32.4 (32.2-35.5) g/dl RDW Std Deviation 48.2 H (36.4-46.3) fL Plt Count 374 H (182-369) K/mm3 MPV 9.6 (9.4-12.3) fl Sodium 138 (136-145) mEq/L Potassium 4.2 (3.5-5.1) mEq/L Chloride 103 (98-107) mEq/L Carbon Dioxide 27 (21-32) mEq/L Anion Gap 12.2 (5-15) BUN 17 (7-18) mg/dL Creatinine 0.9 (0.55-1.02) mg/dL Est Cr Clr Drug Dosing 65.29 mL/min Estimated GFR (MDRD) > 60 (>60) mL/min BUN/Creatinine Ratio 18.9 H (14-18) Glucose 88 (74-106) mg/dL Calcium 9.9 (8.5-10.1) mg/dL Magnesium 1.7 L (1.8-2.4) mg/dl Total Bilirubin 0.2 (0.2-1.0) mg/dL AST 26 (15-37) U/L ALT 63 H (14-59) U/L Alkaline Phosphatase 82 (46-116) U/L Troponin I < 0.017 (0.00-0.056) ng/mL C-Reactive Protein 0.9 (<1.0) mg/dL Total Protein 7.7 (6.4-8.2) g/dl Albumin 3.7 (3.4-5.0) g/dl Globulin 4.0 gm/dL Albumin/Globulin Ratio 0.9 L (1-2) Meds: Medications Discontinued Medications Generic Name Dose Route Start Last Admin Trade Name Freq PRN Reason Stop Dose Admin Influenza Virus Vaccine 60 mcg 06/11/20 19:00 06/11/20 19:46 Fluzone Quad [id number] Syringe IM 06/11/20 19:01 60 mcg .ONCE ONE Administration Orphenadrine Citrate 100 mg 06/11/20 19:34 06/11/20 19:46 Norflex PO 06/11/20 19:35 100 mg ONETIME STA Administration - Re-Assessments/Exams Free Text/Narrative Re-Assessment/Exam: 06/11/20 19:28 As above, the patient has a 2 and half weeks of heartburn, felt primarily in her throat, along with increased eructation. She has had 4-right thoracic pain radiating to her right back on and off since 06/07/2020, and lower abdominal pain since evening 06/08/2020 or Friday morning, 06/05/2020. Reports 2 days of halitosis, then bright red blood over normal-appearing stool when she wiped on Friday night 06/05/2020. She has been taking [id number] TUMS and Pepto-Bismol. She has had some nausea, but no vomiting. No recent fever, and she is afebrile here in the ED. On physical exam, she has no tenderness to her abdomen, but she does have reproducible tenderness over lower far right ribs, extending to her right back. No true CVA tenderness. The remainder of her examination is unremarkable, and her rectal exam is Hemoccult negative. There is no question but that the pain and tenderness to her far right side and back is musculoskeletal in etiology, possibly related to her sleeping on her right side while having her bed inclined to help treat her reflux. I have ordered a work-up that includes several blood tests, a chest x- ray, and an ECG. I do not see an indication for an imaging study of her abdomen. I will start her on Norflex. 06/11/20 20:49 Two-view chest radiograph appears to be grossly normal. The cardiac silhouette is within normal limits. No pulmonary vascular congestion. No pleural effusions. No focal infiltrate. No pneumothorax. Formal read per the Radiologist pending. The patient has slight hypomagnesemia of 1.7. Her CMP, troponin, and CRP are all unremarkable. Her CBC is still pending. 06/11/20 21:00 The patient's CBC is remarkable for mild thrombocytosis of 374,000. 06/11/20 21:08 Test results discussed with the patient. As above, today's work-up is grossly unremarkable. I suspect that she is suffering from inadequately treated GERD, as well as a muscle spasm/strain to her right side. Going forward, I am recommending that she start taking the counter famotidine 1 tablet BID for about a week, after which she can decrease it to 1 tablet once a day. She was started on Norflex here in the ED, and I will submit a prescription, that she can take along with [id number] ibuprofen. Departure - Departure Time of Disposition: 21:09 Disposition: Home, Self-Care 01 Condition: Good Clinical Impression: GERD (gastroesophageal reflux disease), Strain of muscle at thorax level - Discharge Information *PRESCRIPTION DRUG MONITORING PROGRAM REVIEWED*: Not Applicable *COPY OF PRESCRIPTION DRUG MONITORING REPORT IN PATIENT TORI: Not Applicable Referrals: Maritza Butterfield NP [Ordering Only Provider] - Forms: ED Department Discharge Additional Instructions: You were seen in the emergency room for 2-1/2 weeks of heartburn, along with far right pain since Friday, and lower abdominal pain since evening or Friday morning, along with 2 days of sensing bad breath, and bright red blood when you wiped on Friday night. Work-up in the ER included several blood tests, a chest x-ray, and an ECG. Your entire work-up was unremarkable. There is no suggestion of an infection. No heart abnormalities were found. Based on your history, physical exam, and ER tests, you are likely suffering from inadequately treated GERD, and you also likely have a muscle strain on your far right side. You have been started on the antacid medicine famotidine (Pepcid). Famotidine is available [id number], and generic is just as good as brand-name Pepcid. We recommend that you take 1 tablet of famotidine twice a day for the next week or so, after which you can take 1 tablet once a day, however, if your symptoms return, you should go back to 1 tablet twice a day. You have been started on the muscle relaxant Norflex, and a prescription for Norflex has been sent to the [facility], located at [address] [place] [address]. Take 1 tablet of Norflex every 12 hours, starting tomorrow morning, 06/12/2020, as prescribed. Norflex works well with ibuprofen. We recommend that you take 3 tablets (600 mg) up to every 8 hours, with food, as needed for discomfort. No blood was found in your stool, however, we recommend that you stop taking Pepto-Bismol. If any other problems, please do not hesitate to return to the ER. Sepsis Event Note (ED) - Evaluation Sepsis Screening Result: No Definite Risk - Focused Exam Vital Signs: Vital Signs Temp Pulse Resp BP Pulse Ox 06/11/20 18:47 36.6 C 80 18 119/84 99 - My Orders Last 24 Hours: My Active Orders 06/11/20 18:52 Influenza Vaccine Charge [RC] .DISCHARGE 06/11/20 19:27 EKG Documentation Completion [RC] STAT Chest 2V [CR] Stat 06/11/20 19:53 CBC WITH MANUAL DIFF [HEME] Stat - Assessment/Plan Last 24 Hours: My Active Orders 06/11/20 18:52 Influenza Vaccine Charge [RC] .DISCHARGE 06/11/20 19:27 EKG Documentation Completion [RC] STAT Chest 2V [CR] Stat 06/11/20 19:53 CBC WITH MANUAL DIFF [HEME] Stat
[2020-06-11] MEDS ORDERED: Famotidine 20 MG Tab PO STA (21:05)
[2020-06-11] MEDS ORDERED: Ibuprofen 600 MG Tab PO ONE (21:07)
--- NOTE | 2020-06-12 08:32 | CR ---
Chest: 2 views of the chest were obtained. Comparison: No prior chest imaging is available. Heart size and mediastinum are normal. Lungs show no acute parenchymal change. Bony structures are within normal limits for the patient's age. Impression: 1. Nothing acute is seen on 2 view chest x-ray. Diagnostic code #1 I agree with preliminary report from [facility], finalized on 06/11/20, 9:41 PM [employer] SAL[employer]IST
== END 2020-06-11 21:26 | disposition home or self-care (01) ==
LOC: JD.ED 18:32
DX: S29.012A Strain of muscle and tendon of back wall of thorax, initial encounter (principal); K21.9 Gastro-esophageal reflux disease without esophagitis; F17.210 Nicotine dependence, cigarettes, uncomplicated; Z23 Encounter for immunization; Z88.5 Allergy status to narcotic agent; Z90.49 Acquired absence of other specified parts of digestive tract; Z90.710 Acquired absence of both cervix and uterus; X58.XXXA Exposure to other specified factors, initial encounter
CPT/HCPCS: 36415; 71046; 80053; 83735; 84484; 85007; 85027; 86140; 90471; 90686; 93005; 99284; A9270; 93010; 99283; G0008

== ENCOUNTER 2021-02-04 21:09 | Emergency (ER) | payer MEDICAID ==
[2021-02-04] MEDS ORDERED: Ondansetron 4 MG/2 ML SDV IVPUSH ONE (21:37)
[2021-02-04] MEDS ORDERED: HYDROmorphone 1 MG/ML Syringe IV ONE (21:37)
[2021-02-04] MEDS ORDERED: HYDROmorphone 0.5 MG/0.5 ML Syringe IVPUSH ONE (22:22)
--- NOTE | 2021-02-04 23:13 | EDM.PDOC ---
ED HPI GENERAL MEDICAL PROBLEM - General Chief Complaint: Lower Extremity Injury/Pain Stated Complaint: [facility] Time Seen by Provider: 02/04/21 21:34 Source of Information: Reports: Patient, Family, RN Notes Reviewed History Limitations: Reports: No Limitations - History of Present Illness INITIAL COMMENTS - FREE TEXT/NARRATIVE: Patient a 50-year-old female presenting to the emergency department with complaints of pain to her right lower extremity and right thumb. Reports that she tripped over a wire fence in her yard causing the injury. She has been unable to bear any weight on the extremity since the time of the injury. Is any previous fractures to her lower right lower extremity. Last tetanus vaccination was 3 years ago. She was placed into a splint and received Dilaudid from EMS while in route to the ER. Right Lower Leg Pain Score (Numeric/FACES): 7 - Related Data Allergies Allergy/AdvReac Type Severity Reaction Status Date / Time acetaminophen [From Percocet] AdvReac Severe Stomach Verified 02/04/21 21:23 Ache oxycodone [From Percocet] AdvReac Severe Stomach Verified 02/04/21 21:23 Upset tramadol AdvReac Severe Vomiting Verified 02/04/21 21:23 Home Meds: Home Meds Orphenadrine [Norflex] 1 tab PO Q12H PRN #14 tab.er 06/11/20 [Rx] Past Medical History HEENT History: Reports: Other (See Below) Other HEENT History: dental surgery Genitourinary History: Reports: Renal Calculus [employer] History: Reports: Endometriosis Other [employer] DIRECTOR History: chronic pain, dryness and swelling around the nipples Musculoskeletal History: Reports: Other (See Below) Other Musculoskeletal History: tendon repair to R) leg Neurological History: Reports: Migraines - Infectious Disease History Infectious Disease History: Reports: Chicken Pox - Past Surgical History HEENT Surgical History: Reports: Oral Surgery GI Surgical History: Reports: Appendectomy Female Surgical History: Reports: Hysterectomy, Tubal Ligation, Other (See Below) Other Female Surgeries/Procedures: partial hysterectomy Social & Family History - Family History Family Medical History: No Pertinent Family History - Tobacco Use Tobacco Use Status *Q: Current Every Day Tobacco User Years of Tobacco use: 26 Packs/Tins Daily: 0.2 - Caffeine Use Caffeine Use: Reports: Coffee, Soda - Recreational Drug Use Recreational Drug Use: No - Living Situation & Occupation Living situation: Reports: , with Spouse Occupation: Unemployed Review of Systems - Review of Systems Review Of Systems: Comprehensive ROS is negative, except as noted in HPI. ED EXAM, GENERAL - Physical Exam Exam: See Below Exam Limited By: No Limitations General Appearance: Alert, WD/WN, No Apparent Distress Respiratory/Chest: No Respiratory Distress, Lungs Clear, Normal Breath Sounds, No Accessory Muscle Use, Chest Non-Tender Cardiovascular: Normal Peripheral Pulses, Regular Rate, Rhythm, No Edema, No Gallop, No JVD, No Murmur, No Rub Extremities: Other (Tenderness to palpation over the thenar eminence since of the right thumb. No deformity. Full range of motion. Scattered abrasions to the anterior aspect of the right antoine. Mild concave deformity to the distal tibia. CMS intact distal to the injury.) Neurological: Alert, Oriented, CN II-XII Intact, Normal Cognition, Normal Gait, Normal Reflexes, No Motor/Sensory Deficits Psychiatric: Normal Affect, Normal Mood Skin Exam: Warm, Dry, Intact, Normal Color, No Rash ED TRAUMA EXTREMITY PROCEDURES - Splinting Right Lower Extremity Splint Site: right lower leg Pre-Procedure NV Status: Normal Post-Procedure NV Status: Normal Splint Material: Fiberglass Splint Design: Stirrup, Posterior Applied & Form Fitted By: Provider Provider Post-Splint Application NV Check: NV Status Normal, Good Position Complications: No Course - Vital Signs Last Recorded V/S: Last Vital Signs Temp 97.5 F 02/04/21 21:29 Pulse 70 02/04/21 21:29 Resp 20 02/04/21 21:29 BP 142/96 H 02/04/21 21:29 Pulse Ox 100 02/04/21 21:29 - Orders/Labs/Meds Orders: Active Orders 24 hr Category Date Time Status Fingers Thumb Rt F5 [CR] Stat Exams 02/04/21 21:38 Taken Tibia Fibula Rt [CR] Stat Exams 02/04/21 21:38 Taken DME for Discharge [COMM] Routine Oth 02/04/21 22:53 Ordered Meds: Medications Discontinued Medications Generic Name Dose Route Start Last Admin Trade Name Freq PRN Reason Stop Dose Admin Hydromorphone HCl 1 mg 02/04/21 21:37 02/04/21 21:51 Hydromorphone 1 Mg/Ml Syringe IV 02/04/21 21:38 1 mg ONETIME ONE Administration Hydromorphone HCl 0.5 mg 02/04/21 22:22 02/04/21 22:32 Hydromorphone 0.5 Mg/0.5 Ml Syringe IVPUSH 02/04/21 22:23 0.5 mg ONETIME ONE Administration Ondansetron HCl 4 mg 02/04/21 21:37 02/04/21 21:51 Ondansetron 4 Mg/2 Ml Sdv IVPUSH 02/04/21 21:38 4 mg ONETIME ONE Administration - Re-Assessments/Exams Free Text/Narrative Re-Assessment/Exam: X-ray of the right thumb shows no bony abnormalities. There is a slightly displaced comminuted fracture of the distal tibia. Patient received a total of 1.5 mg of IV Dilaudid which did give her a good deal of pain control. Abrasions to the anterior right tibia were cleansed with sterile saline and CHG soap. Antibiotic ointment applied and covered with nonstick Telfa. Splint was applied. See procedure notes for splinting. CMS intact after splint appli cation. Patient will receive hydrocodone as she is allergic to Percocet. I will give her 2 tabs in the emergency department and then provide [facility] prescription that she may take home with her. She will be provided with crutches. Recommend contacting Dr. Liang tomorrow to set up a follow-up visit. Discharge instructions as documented. Departure - Departure Time of Disposition: 23:10 Disposition: Home, Self-Care 01 Condition: Good Clinical Impression: Tibia fracture Qualifiers: Encounter type: initial encounter Tibia location: distal Fracture type: closed Fracture morphology: unspecified fracture morphology Laterality: right Qualified Code(s): S82.301A - Unspecified fracture of lower end of right tibia, initial encounter for closed fracture - Discharge Information *PRESCRIPTION DRUG MONITORING PROGRAM REVIEWED*: Yes *COPY OF PRESCRIPTION DRUG MONITORING REPORT IN PATIENT TORI: No Instructions: Tibial Fracture, Adult Referrals: Maritza Butterfield NP [Primary Care Provider] - Jean Carlos Liang MD [Physician] - Additional Instructions: You were seen in the emergency department today for pain to your right lower extremity as well as right thumb pain after falling. X-ray of your right thumb showed no fractures. You unfortunately have a fracture of your distal tibia. You have been placed in a splint. This should remain on at all times to be left clean and dry. Recommend ice and elevation of your extremity for the next few days. Do not bear weight on this extremity. Use crutches at all times for mobility. Recommend routine Tylenol. For pain not relieved by this, you have been provided hydrocodone with Tylenol. Take these only as prescribed. Ensure that you are not taking more than 4000 mg of Tylenol from all sources in a 24-hour period. Referral has been sent to orthopedist, Dr. Liang. Contact his office tomorrow morning to set up a follow-up visit. The number to schedule with him as listed below. Return to ER for any new or worsening symptoms of concern. Sepsis Event Note (ED) - Evaluation Sepsis Screening Result: No Definite Risk - Focused Exam Vital Signs: Vital Signs Temp Pulse Resp BP Pulse Ox 02/04/21 21:29 97.5 F 70 20 142/96 H 100 - My Orders Last 24 Hours: My Active Orders 02/04/21 21:38 Fingers Thumb Rt F5 [CR] Stat Tibia Fibula Rt [CR] Stat 02/04/21 22:53 DME for Discharge [COMM] Routine - Assessment/Plan Last 24 Hours: My Active Orders 02/04/21 21:38 Fingers Thumb Rt F5 [CR] Stat Tibia Fibula Rt [CR] Stat 02/04/21 22:53 DME for Discharge [COMM] Routine
[2021-02-04] MEDS ORDERED: Acetaminophen/HYDROcodone 325-5 MG Tab PO ONE (23:14)
[2021-02-05 00:04] VITALS: BP 129/73; PULSE 76
--- NOTE | 2021-02-05 07:56 | CR ---
Right tibia and fibula: AP and lateral views of the right tibia and fibula were obtained. Comparison: No priors study. Distal tibial diaphyseal fracture is noted. Displacement is seen by about 4.6 mm. Nondisplaced fracture is noted within the proximal fibular diaphysis. No additional abnormality is seen within the osseous structures. Soft tissue swelling is noted. Impression: 1. Mildly displaced distal tibial diaphyseal fracture. 2. Nondisplaced proximal fracture within the shaft of the fibula. 3. Soft tissue swelling. Diagnostic code #3
--- NOTE | 2021-02-05 07:56 | CR ---
Right thumb: 3 views centered to the right thumb were obtained. Comparison: No prior thumb or hand exam is available. Joint spaces within the right thumb are maintained. No acute fracture, dislocation or other bony abnormality is appreciated. Impression: 1. Nothing acute is seen on right thumb study. Diagnostic code #1
== END 2021-02-04 23:20 | disposition home or self-care (01) ==
LOC: JD.ED 21:09 → SUPCPDRO 21:09 → JD.ED 23:20
DX: S82.391A Other fracture of lower end of right tibia, initial encounter for closed fracture (principal); Z88.6 Allergy status to analgesic agent; Z88.5 Allergy status to narcotic agent; Z72.0 Tobacco use; W01.0XXA Fall on same level from slipping, tripping and stumbling without subsequent striking against object, initial encounter
CPT/HCPCS: 73140; 73590; 96374; 96375; 96376; 99283; J1170; J2405; 29515

== ENCOUNTER 2023-06-01 13:28 | Emergency (ER) | payer MEDICAID ==
[2023-06-01] MEDS ORDERED: Ketorolac 60 MG/2 ML SDV IM ONE (14:18)
[2023-06-01 17:15] VITALS: BP 121/84; PULSE 90
== END 2023-06-01 16:25 | disposition home or self-care (01) ==
LOC: JD.ED 13:28
DX: R07.81 Pleurodynia (principal); Z87.891 Personal history of nicotine dependence; Z88.8 Allergy status to other drugs, medicaments and biological substances; Z88.5 Allergy status to narcotic agent; Z90.49 Acquired absence of other specified parts of digestive tract; Z90.710 Acquired absence of both cervix and uterus
CPT/HCPCS: 71101; 73562; 96372; 99283; J1885

== ENCOUNTER 2024-04-03 16:44 | Emergency (ER) | payer MEDICAID ==
[2024-04-03] MEDS ORDERED: Sodium Chloride 0.9% 10 ML Syringe FLUSH PRN (17:07)
[2024-04-03] MEDS: Sodium Chloride 0.9% 1,000 ML IV ONE (17:15)
[2024-04-03 17:19] LABS: BASOPHILS PERCENT AUTO 0.2 % (0.0-1.0); EOSINOPHILS ABSOLUTE AUTO 0.1 K/mm3 (0.0-0.4); EOSINOPHILS PERCENT AUTO 0.6 % (0.0-6.0); HEMATOCRIT 44.9 % (37.0-47.0); HEMOGLOBIN 15.2 gm/dl (12.0-16.0); IMMATURE GRAN ABSOLUTE AUTO 0.07 K/mm3 (0.00-0.05); IMMATURE GRAN PERCENT AUTO 0.7 % (0.0-0.4); LYMPHOCYTES ABSOLUTE AUTO 5.4 K/mm3 (1.0-4.8); LYMPHOCYTES PERCENT AUTO 50.6 % (24.0-44.0); MEAN CORPUSCULAR HEMOGLOBIN 32.3 pg (28.0-32.0); MEAN CORPUSCULAR HGB CONC 33.9 g/dl (32.0-36.0); MEAN CORPUSCULAR VOLUME 95.5 fl (83.0-99.0); MEAN PLATELET VOLUME 8.9 fl (9.4-12.3); MONOCYTES ABSOLUTE AUTO 0.3 K/mm3 (0.0-0.8); MONOCYTES PERCENT AUTO 2.7 % (0.0-8.0); NEUTROPHILS ABSOLUTE AUTO 4.9 K/mm3 (1.8-7.7); NEUTROPHILS PERCENT AUTO 45.2 % (41.0-71.0); PLATELET COUNT,PLT 374 K/mm3 (150-400); WHITE BLOOD CELL COUNT,WBC 10.73 K/mm3 (3.9-11.3)
[2024-04-03 17:41] LABS: ALBUMIN 3.5 g/dl (3.4-5.0); ANION GAP 16.6 (5-15); BILIRUBIN TOTAL 0.4 mg/dL (0.2-1.0); BUN/CREATININE RATIO 8.3 (14-18); CALCIUM 9.5 mg/dL (8.5-10.1); CREATININE 1.2 mg/dL (0.55-1.02); EST CRCL DRUG DOSING (CG) 48.79 mL/min
[2024-04-03] MEDS: Famotidine 20 MG/2 ML SDV IVPUSH ONE (17:41)
[2024-04-03 18:31] LABS: SLIDE REVIEW ABNORMAL SMEAR
[2024-04-03] MEDS: Acetaminophen 325 MG Tab PO ONE (19:28)
[2024-04-03 20:24] VITALS: BP 124/85; PULSE 85
[2024-04-04 13:43] LABS: POTASSIUM,K 3.6 mEq/L (3.5-5.1)
== END 2024-04-03 20:27 | disposition home or self-care (01) ==
LOC: JD.ED 16:44
DX: T78.2XXA Anaphylactic shock, unspecified, initial encounter (principal); S00.86XA Insect bite (nonvenomous) of other part of head, initial encounter; K21.9 Gastro-esophageal reflux disease without esophagitis; Z90.49 Acquired absence of other specified parts of digestive tract; Z90.710 Acquired absence of both cervix and uterus; Z79.899 Other long term (current) drug therapy; Z88.6 Allergy status to analgesic agent; Z88.5 Allergy status to narcotic agent; W57.XXXA Bitten or stung by nonvenomous insect and other nonvenomous arthropods, initial encounter
CPT/HCPCS: 36415; 80053; 85025; 93005; 96361; 96374; 99285; A9270; J3490; J7030